=== PATIENT | male | born 1975 ===

== ENCOUNTER 2020-05-09 16:13 | Emergency (ER) | payer OTHER ==
[~2020-05-09] VITALS: Ht 190.5 cm; Wt 119.7 kg
[2020-05-09] MEDS ORDERED: DOLOGEN CAPLET1 EACH PO (17:35)
== END 2020-05-09 18:00 | disposition home or self-care (01) ==
LOC: ER 16:13
DX: M94.0 Chondrocostal junction syndrome [Tietze] (principal)